=== PATIENT | female | born 1955 | race Caucasian/White ===

== ENCOUNTER 2017-04-14 09:44 | Outpatient (RCR) | payer MEDICAID ==
[2014-11-24 09:38] VITALS: BMI 24.0
[2016-12-17 16:46] VITALS: BP 131/87
[~2017-04-14 09:44] MED LIST: ABILIF5PT PO; ACET-2031 PO; ALTEPLASE RECOMB 2 MG VIAL IVP PRN; ARI2 PO; ARIP10TA4 PO; ARIP5TAB28 PO; BAC10 PO; BACL-1 PO; BACLOFEN PO; CETI-14 PO; CETI-169 PO; CETI-434 PO; CETI10CA8 PO; CHOL10005 PO; CIP500 PO; CIPR-212 PO; CIPR-344 PO; CITA-128 PO; CLAR-1 PO; CLO1 PO; CLON-303 *; CLON-303 PO; CLON-389 PO; CYAN100T31 PO; CYCL10TA29 PO; DEXTROSE 5%(*) 100 ML BAG 100 ML IVPB PRN; DUONEB NEB; EXC PO; FISH OIL1 CAP PO; FLUO-201 PO; FLUO-202 PO; FLUO40CA76 PO; FURO20TA19 PO; HEPARIN FLSH (PORT) 500 UN/5ML IVP PRN; HYDR-385 PO; HYDR-4309 PO; IBU600 PO; IBUP-1618 PO; IBUP200C71 PO; IBUP600T22 PO; IBUP800T37 PO; LAN30PT PO; LEV2I PO; LEVO-3 PO; LEVO-85 PO; LEVO112T44 PO; LEVO200T50 PO; LEVO50TA86 PO; LEVO88TA45 PO; LIDOCAINE/SOD BICARB 8.4% SYR ID PRN; LOR5/325 PO; LURA40TA3 PO; MEMA10TA18 PO; METH-543 PO; METH20TA33 PO; METH5TAB87 PO; METHAMAZOLE PO; METR-1 PO; MIR45PT PO; NITR-105 PO; NS(*) 0.9% 100 ML BAG 100 ML IVPB PRN; NS(*) 0.9% 500 ML BAG 500 ML IV PRN; OMEP40CA48 PO; ONDA4TAB PO; ONDA4TAB97 PO; ONDA8TAB98 PO; OXYC-717 PO; OXYC-865 PO; OXYC-870 PO; OXYC1TAB54 PO; OXYM30SP2 ENA; PAN40 PO; PANT40SU3 PO; PER PO; PHEN200T32 PO; PRE10 PO; PRE20 PO; PRE5 PO; PROM-100 PO; PROM-110 PO; PROM25SU8 PR; QUET100T PO; QUET200T29 PO; QUET25TA PO; QUET300T17 PO; QUET50TA PO; SUCR1TAB85 PO; SULF-198 PO; SULF1TAB24 PO; TIZA-128 PO; TRA50 PO; TRAM-420 PO; TRAZ-133 PO; TRAZ-156 PO; TRAZ-163 PO; TRAZ150T61 PO; TRAZ150T8 PO; VILA40TA PO; VORT10TA PO; VORT20TA PO; WATER STERILE 10 ML VIAL IVP PRN; ZOL5 PO; ZOLP-1 PO; ZOLP-350 PO; ZOLP6.2530 PO; [UNRECOGNIZED DRUG - CODE]
[2017-04-22] MEDS ORDERED: LOPE2CAP88 PO (13:23)
[2017-04-22] MEDS ORDERED: DICY10AM2 PO (13:23)
[2017-04-22] MEDS ORDERED: IBUP800T37 PO (13:23)
[2017-04-22] MEDS ORDERED: DESV50TA9 PO (13:26)
[2017-04-22] MEDS ORDERED: LEVO-317 PO (13:26)
[2017-04-22] MEDS ORDERED: TRAZ-163 PO (13:26)
[2017-04-22] MEDS ORDERED: OMEP-125 PO (13:26)
== END 2017-05-25 10:28 | disposition home or self-care (01) ==
LOC: SPU 09:44
PROVIDERS: ATTEND Physician Assistant
DX: E03.9 Hypothyroidism, unspecified (principal)

== ENCOUNTER → 2017-04-20 | Outpatient (CLI) | payer MEDICAID ==
[2014-11-24 09:38] VITALS: BMI 24.0
[~2017-04-20] MED LIST changes: -ALTEPLASE RECOMB 2 MG VIAL IVP PRN; +DESV50TA9 PO; -DEXTROSE 5%(*) 100 ML BAG 100 ML IVPB PRN; +DICY10AM2 PO; -HEPARIN FLSH (PORT) 500 UN/5ML IVP PRN; +LEVO-317 PO; -LIDOCAINE/SOD BICARB 8.4% SYR ID PRN; +LOPE2CAP88 PO; -NS(*) 0.9% 100 ML BAG 100 ML IVPB PRN; -NS(*) 0.9% 500 ML BAG 500 ML IV PRN; +OMEP-125 PO; -WATER STERILE 10 ML VIAL IVP PRN
--- NOTE | 2017-04-21 08:25 | RADIOLOGY IMAGING REPORT ---
FACILITY: [facility] PATIENT NAME: RENEE MAZARIEGOS : [id number] MR: [id number] V: [id number] EXAM DATE: [id number] ORDERING PHYSICIAN: DELIA RILEY TECHNOLOGIST: Gertrude Malone PROCEDURE:BILATERAL DIAGNOSTIC DIGITAL MAMMOGRAM WITH CAD AND 3D BREAST TOMOSYNTHESIS. COMPARISON:Prior mammograms dated 06/25/13, 06/08/13. INDICATIONS:RIGHT BREAST PAIN. FINDINGS: Dense heterogeneous fibroglandular tissue is seen throughout the breasts. The previously noted round density in the medial portion of the right breast seen on the prior mammogram from 06/08/13 is no longer seen and by history was surgically removed. The parenchymal pattern has otherwise remained stable when allowing for difference in mammographic technique and patient positioning. There is no demonstration of malignant appearing mass, malignant appearing calcification or other secondary sign of malignancy in either breast. DIAGNOSTIC CATEGORY 2--BENIGN FINDING. RECOMMENDATIONS: ROUTINE MAMMOGRAM AND CLINICAL EVALUATION. CLINICAL EVALUATION. IMPRESSION: BI-RADS 2: No mammographic abnormality is seen. Today's right breast ultrasound did reveal prominent ducts in the lateral portion of the right breast which may account for the patient's right breast pain. Clinical followup recommended for her pain. Dictated by: Mare Díaz M.D. on 04/20/2017 at 16:05 Transcribed by: JESSICA on 04/20/2017 at 22:49 Approved by: Mare Díaz M.D. on 04/21/2017 at 8:24 [facility]
--- NOTE | 2017-04-21 08:25 | RADIOLOGY IMAGING REPORT ---
FACILITY: [facility] [place] PATIENT NAME: RENEE MAZARIEGOS : [id number] MR: [id number] V: [id number] EXAM DATE: ORDERING PHYSICIAN: DELIA RILEY TECHNOLOGIST: Sandor De La O PROCEDURE:RIGHT BREAST ULTRASOUND COMPARISON:None. INDICATIONS:RIGHT BREAST PAIN. FINDINGS: There are very prominent ducts in the lateral portion of the right breast which may account for patient's right breast pain. Prominent ducts also noted in the right retroareolar portion. DIAGNOSTIC CATEGORY 2--BENIGN FINDING. RECOMMENDATIONS: ROUTINE MAMMOGRAM AND CLINICAL EVALUATION. CLINICAL EVALUATION. IMPRESSION: BI-RADS 2: Prominent ducts in the lateral portion of the right breast and the right retroareolar region which may account for patient's right breast pain. Clinical followup recommended. Dictated by: Mare Díaz M.D. on 04/20/2017 at 16:29 Transcribed by: JESSICA on 04/20/2017 at 23:13 Approved by: Mare Díaz M.D. on 04/21/2017 at 8:24 [facility]
== END ==
LOC: MAMO 01:41
PROVIDERS: ATTEND Physician Assistant
DX: R92.8 Other abnormal and inconclusive findings on diagnostic imaging of breast (principal)
CPT/HCPCS: 77062; 77066

== ENCOUNTER 2017-04-28 01:39 | Day surgery (SDC) | payer MEDICAID ==
[2014-11-24 09:38] VITALS: Ht 175.3 cm; Wt 85.7 kg
[2017-04-28] VITALS (9 sets, daily range): BP systolic 68–122; BP diastolic 39–81
[~2017-04-28] VITALS: Ht 175.3 cm; Wt 85.7 kg
[2017-04-28] MEDS ORDERED: PROPOFOL EMUL(*) 10MG/ML 20 ML 40 ML ONE (07:07)
--- NOTE | 2017-04-28 07:25 | Post Operative Progress Note ---
Post Operative Progress Note Date: Apr 28, 2017 Time: 09:29 Surgeon: kvng Anesthesia: dr whalen Pre-Op Diagnosis: diarrhea Post-Op Diagnosis: sigmoid diverticulosis, 2 mm polyp at 70 cm and 4 mm polyp at 35 cm Procedure(s): colonoscopy with polypectomy and random biopsies NORBERT HOBBS MD Apr 28, 2017 07:25
--- NOTE | 2017-04-28 07:26 | Short(Outpt) Discharge Summary ---
Discharge Summary Reason for Hosp/Final Diag: (1) Diarrhea Hospital Course & Plan: sigmoid diverticulosis, 2 mm polyp at 70 cm and 4 mm polyp at 35 cm Departure Discharge to: Home Discharge Instructions Home Meds Reported Medications Desvenlafaxine Succinate (PRISTIQ ER) 50 Mg Tab.er.24h, 50 MG PO QHS 04/22/17 Levothyroxine Sodium (LEVOXYL) 125 Mcg Tablet, 125 MCG PO QDAY, TAB 04/22/17 Trazodone Hcl (TRAZODONE HCL) 100 Mg Tablet, 100 MG PO QHS, TAB 04/22/17 Omeprazole (OMEPRAZOLE) 20 Mg Capsule.dr, 1 CAP PO QDAY, CAP 04/22/17 Ibuprofen (IBUPROFEN) 800 Mg Tablet, 1 TAB PO Q8H, TAB 04/22/17 Loperamide Hcl (LOPERAMIDE) 2 Mg Capsule, 4 MG PO QAM, CAPSULE 04/22/17 Dicyclomine Hcl (BENTYL) 10 Mg/1 Ml Ampul, 10 MG PO QAM 04/22/17 Clonazepam (CLONAZEPAM) 1 Mg Tab.rapdis, 2 MG PO QHS, #12 TAB 11/02/16 Aripiprazole (ABILIFY) 5 Mg Tablet, 10 MG PO QDAY, #10 TAB 11/02/16 Cholecalciferol (Vitamin D3) (VITAMIN D3) 1,000 Unit Tablet, 2000 UNIT PO, TAB 12/12/15 Quetiapine Fumarate (QUETIAPINE FUMARATE) 50 Mg Tablet, 50 MG PO QHS 10/06/15 Discontinued Reported Medications Levothyroxine Sodium (LEVOTHYROXINE SODIUM) 100 Mcg Tablet, 100 MCG PO QDAY, TAB 11/02/16 Trazodone Hcl (TRAZODONE HCL) 50 Mg Tablet, 50 MG PO QHS 11/06/15 Lansoprazole (PREVACID) 30 Mg Capsule.dr, 30 MG PO QDAY, CAP 09/12/15 Discontinued Scripts Ibuprofen (IBUPROFEN) 600 Mg Tablet, 1 TAB PO Q6H for PAIN, #60 TAB Prov:ANGEL KEMP DO 01/08/16 Diet: High Fiber Activity: As Tolerated NORBERT HOBBS MD Apr 28, 2017 07:26
[2017-04-28] MEDS ORDERED: MIDAZOLAM 2 MG/2 ML VIAL IVP ONE (08:30)
[2017-04-28] MEDS ORDERED: LIDOCAINE/SOD BICARB 8.4% SYR ID ONE (08:30)
[2017-04-28] MEDS ORDERED: NORMOSOL R SOLN(*) 1000 ML BAG 1,000 ML IV PRN (08:30)
[2017-04-28] MEDS ORDERED: PROPOFOL EMUL(*) 10MG/ML 20 ML 20 ML ONE (09:15)
--- NOTE | 2017-04-28 16:15 | OPERATIVE REPORT 1 ---
EVENT DATE: April 28, 2017 SURGEON: Travis Santillan MD ANESTHESIOLOGIST: Brendan Brown MD ANESTHESIA: Sedation. PREOPERATIVE DIAGNOSIS Diarrhea. POSTOPERATIVE DIAGNOSES 1. Sigmoid diverticulosis. 2. A 2 mm polyp at 70 cm. 3. A 4 mm polyp at 35 cm. PROCEDURE PERFORMED Colonoscopy with random biopsies and polypectomies. DESCRIPTION OF PROCEDURE The patient was placed in the left lateral decubitus position and given intravenous sedation. The rectal exam was unremarkable. A flexible colonoscope was inserted and advanced to the cecum. She had an excellent bowel prep. Ileocecal valve, base of the cecum, and appendiceal orifice were identified. The scope was slowly withdrawn. Care was taken to look behind the haustral folds. No abnormalities were noted in the right colon. Random biopsies were taken. The transverse colon appeared to be normal. Biopsies were taken. The left colon appeared to be normal. Biopsies were taken. She did have some sigmoid diverticula. No evidence of diverticulitis. At 70 cm, she had a 2 mm polypoid projection. This was removed with a cold cup. At 35 cm , she had a 4 mm polyp which was removed with polypectomy snare cautery and retrieved. The rectum was normal. The scope was retroflexed, and that appeared to be normal. Random biopsies were obtained of the rectum as well. The patient will require a repeat colonoscopy in five years if those polyps are adenomatous. RAUL
== END 2017-04-28 11:02 | disposition home or self-care (01) ==
LOC: OR 01:39
PROVIDERS: ATTEND Surgery
DX: D12.4 Benign neoplasm of descending colon (principal); K63.5 Polyp of colon; K57.30 Diverticulosis of large intestine without perforation or abscess without bleeding
CPT/HCPCS: 00812; 45380; 45385; 88305; J2704

== ENCOUNTER 2017-07-07 08:06 | Outpatient (RCR) | payer MEDICAID ==
[2014-11-24 09:38] VITALS: BMI 24.0
[2017-07-07] MEDS ORDERED: DEXTROSE 5%(*) 100 ML BAG 100 ML IVPB PRN (12:25)
[2017-07-07] MEDS ORDERED: NS(*) 0.9% 500 ML BAG 500 ML IV PRN (12:25)
[2017-07-07] MEDS ORDERED: NS(*) 0.9% 100 ML BAG 100 ML IVPB PRN (12:25)
[2017-07-07] MEDS ORDERED: LIDOCAINE/SOD BICARB 8.4% SYR ID PRN (12:25)
[2017-07-07] MEDS ORDERED: HEPARIN FLSH (PORT) 500 UN/5ML IVP PRN (12:25)
[2017-07-07] MEDS ORDERED: WATER FOR INJ,STERILE 20 ML IVP PRN (12:25)
[2017-07-07] MEDS ORDERED: ALTEPLASE RECOMB 2 MG VIAL IVP PRN (12:25)
[2017-07-07 13:31] VITALS: BP 107/77
== END 2017-07-29 10:57 | disposition home or self-care (01) ==
LOC: SPU 08:06
PROVIDERS: ATTEND Physician Assistant
DX: E03.9 Hypothyroidism, unspecified (principal)
CPT/HCPCS: 84443; 96523; J1642

== ENCOUNTER → 2017-08-23 | Outpatient (CLI) | payer MEDICAID ==
[2014-11-24 09:38] VITALS: BMI 24.0
--- NOTE | 2017-08-23 15:08 | RADIOLOGY IMAGING REPORT ---
FACILITY: [facility] [place] PATIENT NAME: Gayatri Ahuja : 1955 MR: [id number] V: [id number] EXAM DATE: ORDERING PHYSICIAN: DELIA RILEY TECHNOLOGIST: Location: [facility] Patient: Gayatri Ahuja : 1955 Visit/Account:[id number] Date of Sevice: 08/23/2017 DEXA Scan 08/23/2017 2:30 PM HISTORY: Postmenopausal. Low back pain. Family history of osteoporosis. Comparison: DEXA scan from 06/08/2013. LUMBAR SPINE: The bone mineral density (BMD) measured from L1-L4 correlates with a Z-score of 0.5 and a T-score of -0.4 which is Normal as defined by the World Health Organization. The corresponding risk of fracture in the lumbar spine is not significantly increased compared with a young adult reference population. This value has decreased by 6.2 % since the prior study. More than 5% change is considered signifi cant. HIP: Bone mineral density (BMD) measured in the Left total hip region correlates with a Z-score -1.0 and a T-score of -1.6 which is moderately osteopenic as defined by the World Health Organization. The cor responding risk of fracture in the hip is increased 3-4 times compared with a young adult reference p opulation. This value has decreased by 7.4 % since the prior study. More than 5% change is considere d significant. Bone mineral density (BMD) measured in the Femoral Neck region measures 0.808 g/cm2. T-score is -1. 7. IMPRESSION: 1. Lumbar spine: Normal. There has been a significant interval decrease in the bone mineral density since the previous exam. 2. Left Total Hip: Moderate osteopenia. There has been a significant interval decrease in the bone mineral density since the previous exam. 3. Femoral Neck: Bone Mineral Density is 0.808 g/cm2. Moderate osteopenia. The next DEXA scan of this patient should include the following sites: L1-L4 and the left hip. FRAX? WHO Fracture Risk Assessment Tool link: <http://www.shef.ac.uk/FRAX/tool.jsp?locationValue=9> PLEASE NOTE: 1) The World Health Organization defines low BMD as follows: T-score Normal > -1 Osteopenia < -1 and > -2.5 Osteoporosis < -2.5 without fractures Established osteoporosis < -2.5 with fractures 2) In general, you may wish to consider: Diagnosis Treatment Follow-up DEXA Normal BMD Prevention 2-3 years Osteopenia Prevention/therapy 1-2 years Osteoporosis Therapy Yearly 3) Fracture risk estimated from the T-score is more accurate for vertebral fractures (often spontane ous) than for hip fractures. Report Dictated By: Eliseo Dorantes MD at 08/23/2017 3:04 PM Report E-Signed By: Eliseo Dorantes MD at 08/23/2017 3:06 PM RAJESHN:SAVANA
== END ==
LOC: RAD 08-11 02:34
PROVIDERS: ATTEND Physician Assistant
DX: Z13.820 Encounter for screening for osteoporosis (principal); M85.88 Other specified disorders of bone density and structure, other site
CPT/HCPCS: 77080

== ENCOUNTER 2017-08-27 17:23 | Emergency (ER) | payer MEDICAID ==
[2014-11-24 09:38] VITALS: BMI 24.0
[~2017-08-27 17:23] MED LIST changes: -KET10 PO
--- NOTE | 2017-08-27 17:38 | ER Report ---
History and Physical Time Seen By MD: 17:38 Hx. of Stated Complaint: PT PRESENTS WITH ROUNDABOUT STORY OF TRIPPIN AND FALLING DOWN WOODEN STEPS, WITH QUESTIONABLE LOC, CAME BACK IN HER HOUSE AND TOOK A 2 HOUR NAP. SHE WOKE UP AND CALLED AMBULANCE C COLLAR IN PLACE HPI/ROS CHIEF COMPLAINT: Fall HISTORY OF PRESENT ILLNESS: 61-year-old female patient presents to emergency room with complaint of a fall. Patient states that she was on the porch and is unsure what happened, she ended up falling down 5 steps. She states she landed on her foot at the bottom. She states that since then she's been having a headache, neck pain, back pain, left lower leg pain. Patient states she's also noticed that she is dizzy as well as confused. She states that she has been nauseated but denies having any vomiting. She states she has not taken any medication for this. She did contact EMS after waking up for nap and being unable to recall the past 2 hours. REVIEW OF SYSTEMS: Respiratory: No cough, no dyspnea. Cardiovascular: No chest pain, no palpitations. Gastrointestinal: No vomiting, no abdominal pain. Musculoskeletal: As noted above Allergies: Coded Allergies: Penicillins (Verified Allergy, Severe, 08/27/17) codeine (Verified Allergy, Mild, N/V, 08/27/17) erythromycin base (Verified Allergy, Mild, 08/27/17) propoxyphene (Verified Allergy, Mild, NAUSEA, 08/27/17) tetracycline (Verified Allergy, Mild, DIARRHEA, 08/27/17) Home Meds Reported Medications Desvenlafaxine Succinate (PRISTIQ ER) 50 Mg Tab.er.24h, 50 MG PO QHS 04/22/17 Levothyroxine Sodium (LEVOXYL) 125 Mcg Tablet, 125 MCG PO QDAY, TAB 04/22/17 Trazodone Hcl (TRAZODONE HCL) 100 Mg Tablet, 100 MG PO QHS, TAB 04/22/17 Omeprazole (OMEPRAZOLE) 20 Mg Capsule.dr, 1 CAP PO QDAY, CAP 04/22/17 Ibuprofen (IBUPROFEN) 800 Mg Tablet, 1 TAB PO Q8H, TAB 04/22/17 Loperamide Hcl (LOPERAMIDE) 2 Mg Capsule, 4 MG PO QAM, CAPSULE 04/22/17 Dicyclomine Hcl (BENTYL) 10 Mg/1 Ml Ampul, 10 MG PO QAM 04/22/17 Clonazepam (CLONAZEPAM) 1 Mg Tab.rapdis, 2 MG PO QHS, #12 TAB 11/02/16 Aripiprazole (ABILIFY) 5 Mg Tablet, 10 MG PO QDAY, #10 TAB 11/02/16 Cholecalciferol (Vitamin D3) (VITAMIN D3) 1,000 Unit Tablet, 2000 UNIT PO, TAB 12/12/15 Quetiapine Fumarate (QUETIAPINE FUMARATE) 50 Mg Tablet, 50 MG PO QHS 10/06/15 Past Medical/Surgical History Patient has a past medical history of stress headaches, seizures, migraines, irregular heartbeat, DVT, hypertension, asthma, pneumonia, pulmonary embolism, reflux, pancreatitis, UTI, back and neck pain, bilateral arm fractures, ruptured disc in neck, elbow fracture 3, hypothyroidism, PTSD, anxiety, depression. Patient has a surgical history of tonsillectomy, surgery for TMJ, bilateral knee surgery, bunionectomy, hysterectomy, cholecystectomy, thyroidectomy. Patient has a family medical history of cancer, stroke, diabetes, psychiatric problems. Reviewed Nurses Notes: Yes Hx Smoking: No Smoking Status: Former Smoker Exposure to Second Hand Smoke?: No Hx Substance Use Disorder: No Hx Alcohol Use: No Constitutional Vital Sign - Last 24 Hours 08/27/17 08/27/17 08/27/17 08/27/17 17:24 17:24 17:30 17:35 Temp 97.8 Pulse 66 69 Resp 20 B/P (MAP) 122/85 (97) 122/85 137/90 (106) Pulse Ox 95 95 O2 Delivery Room Air 08/27/17 08/27/17 08/27/17 08/27/17 18:00 18:05 18:20 18:30 Pulse 68 66 B/P (MAP) 128/69 (88) 118/63 (81) Pulse Ox 93 93 08/27/17 18:50 Pulse 66 Pulse Ox 78 Physical Exam General Appearance: The patient is alert, has no immediate need for airway protection and no current signs of toxicity. Respiratory: Chest is non tender, lungs are clear to auscultation. Cardiac: regular rate and rhythm Gastrointestinal: Abdomen is soft and non tender, no masses, bowel sounds normal. Musculoskeletal: Neck: Neck is tender to palpation, unable to evaluate further as patient has c-collar. Extremities have full range of motion and are non tender. Patient has tenderness to the left lower leg, no bruising. Skin: No rashes or lesions. Neuro: Patient is alert and oriented 2, cranial nerves II through XII grossly intact. Patient unable to complete serial sevens. Patient was unable to name the president or give the date, however she did not month. DIFFERENTIAL DIAGNOSIS: After history and physical exam differential diagnosis was considered for concussion, cervical strain, fracture, intracranial hemorrhage. Medical Decision Making Data Points Result Diagram: 08/27/17184908/27/171849 Laboratory Hematology Test 08/27/17 18:50 Red Blood Count 4.56 M/uL (4.17-5.56) Mean Corpuscular Volume 81.5 fL (80.0-96.0) Mean Corpuscular Hemoglobin 27.9 pg (26.0-33.0) Mean Corpuscular Hemoglobin Concent 34.3 g/dL (32.0-36.0) Red Cell Distribution Width 14.5 % (11.5-14.5) Mean Platelet Volume 9.4 fL (7.2-11.1) Neutrophils (%) (Auto) 63.2 % (39.4-72.5) Lymphocytes (%) (Auto) 29.3 % (17.6-49.6) Monocytes (%) (Auto) 5.3 % (4.1-12.4) Eosinophils (%) (Auto) 1.6 % (0.4-6.7) Basophils (%) (Auto) 0.6 % (0.3-1.4) Nucleated RBC Relative Count (auto) 0.0 /100WBC Neutrophils # (Auto) 5.6 K/uL (2.0-7.4) Lymphocytes # (Auto) 2.6 K/uL (1.3-3.6) Monocytes # (Auto) 0.5 K/uL (0.3-1.0) Eosinophils # (Auto) 0.1 K/uL (0.0-0.5) Basophils # (Auto) 0.0 K/uL (0.0-0.1) Nucleated RBC Absolute Count (auto) 0.00 K/uL Sodium Level 143 mmol/L (137-145) Potassium Level 3.3 mmol/L (3.5-5.0) Chloride Level 110 mmol/L (98-107) Carbon Dioxide Level 16 mmol/L (22-31) Blood Urea Nitrogen 21 mg/dl (7-18) Creatinine 1.60 mg/dl (0.52-1.04) Glomerular Filtration Rate Calc 32.7 Random Glucose 98 mg/dl (75-110) Calcium Level 9.6 mg/dl (8.4-10.2) Total Bilirubin 0.3 mg/dl (0.2-1.3) Aspartate Amino Transf (AST/SGOT) 19 U/L (0-35) Alanine Aminotransferase (ALT/SGPT) 17 U/L (0-56) Alkaline Phosphatase 95 U/L (0-126) Troponin I < 0.012 ng/ml Total Protein 7.9 gm/dl (6.3-8.2) Albumin 4.1 g/dl (3.5-5.0) Chemistry Test 08/27/17 18:50 White Blood Count 8.8 k/uL (4.5-11.0) Red Blood Count 4.56 M/uL (4.17-5.56) Hemoglobin 12.7 g/dL (12.0-16.0) Hematocrit 37.2 % (34.0-47.0) Mean Corpuscular Volume 81.5 fL (80.0-96.0) Mean Corpuscular Hemoglobin 27.9 pg (26.0-33.0) Mean Corpuscular Hemoglobin Concent 34.3 g/dL (32.0-36.0) Red Cell Distribution Width 14.5 % (11.5-14.5) Platelet Count 207 K/uL (150-450) Mean Platelet Volume 9.4 fL (7.2-11.1) Neutrophils (%) (Auto) 63.2 % (39.4-72.5) Lymphocytes (%) (Auto) 29.3 % (17.6-49.6) Monocytes (%) (Auto) 5.3 % (4.1-12.4) Eosinophils (%) (Auto) 1.6 % (0.4-6.7) Basophils (%) (Auto) 0.6 % (0.3-1.4) Nucleated RBC Relative Count (auto) 0.0 /100WBC Neutrophils # (Auto) 5.6 K/uL (2.0-7.4) Lymphocytes # (Auto) 2.6 K/uL (1.3-3.6) Monocytes # (Auto) 0.5 K/uL (0.3-1.0) Eosinophils # (Auto) 0.1 K/uL (0.0-0.5) Basophils # (Auto) 0.0 K/uL (0.0-0.1) Nucleated RBC Absolute Count (auto) 0.00 K/uL Glomerular Filtration Rate Calc 32.7 Calcium Level 9.6 mg/dl (8.4-10.2) Total Bilirubin 0.3 mg/dl (0.2-1.3) Aspartate Amino Transf (AST/SGOT) 19 U/L (0-35) Alanine Aminotransferase (ALT/SGPT) 17 U/L (0-56) Alkaline Phosphatase 95 U/L (0-126) Troponin I < 0.012 ng/ml Total Protein 7.9 gm/dl (6.3-8.2) Albumin 4.1 g/dl (3.5-5.0) EKG/Imaging EKG Interpretation 12 lead EKG: Rhythm: normal sinus rhythm with ventricular rate of 60 bpm [place]: normal QRS: normal ST segments: normal Imaging C-SPINE W/O CONTRAST HISTORY: Fall with confusion and dizziness. COMPARISON: 08/19/2016. MR cervical spine 01/10/2014. CT brain was performed concurrently. TECHNIQUE: Axial images were obtained from the skull base through the upper thoracic spine. Coronal and sagittal reformatted images were obtained from the axial source data. One of the following dose optimization techniques was utilized in the performance of this exam: Automated exposure control; adjustment of the mA and/ or kV according to the patient's size; or use of an iterative reconstruction technique. Specific details can be referenced in the facility's radiology CT exam operational policy. CONTRAST: None. FINDINGS: Musculoskeletal/vertebra: No acute osseous abnormality. Vertebral body heights are maintained and alignment is unremarkable. There is moderate to severe degenerative disease at C5-6 with anterior and posterior osteophytes. Spinal canal is normal in caliber, although there is mild narrowing at C5-6 secondary to degenerative changes. Prevertebral soft tissues are within normal limits. There is severe degenerative facet disease of lower cervical and upper thoracic spine. There is severe degenerative change of the right temporomandibular joint with [id number] and subchondral cyst formation, as well as expansion of the right mandibular head. Visualized upper chest: Normal. Soft tissues: There is a right port that is partially visualized. IMPRESSION: 1. Degenerative changes, but no acute osseous abnormality of the cervical spine. 2. 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 Report Dictated By: Pilar Kimball at 08/27/2017 8:12 PM Report E-Signed By: Pilar Kimball at 08/27/2017 8:17 PM HEAD W/O CONTRAST HISTORY: Fall with confusion and dizziness. COMPARISON: 08/19/2016 and studies dating to 06/08/2011. CT cervical spine was performed concurrently. TECHNIQUE: Axial images were obtained from the skull base to the vertex without contrast. Sagittal and coronal reformats were performed. One of the following dose optimization techniques was utilized in the performance of this exam: Automated exposure control; adjustment of the mA and/ or kV according to the patient's size; or use of an iterative reconstruction technique. Specific details can be referenced in the facility's radiology CT exam operational policy. CONTRAST: None. FINDINGS: Brain: No intracranial hemorrhage, mass or edema. There is periventricular and subcortical white matter low attenuation that is nonspecific, but most likely reflects chronic microvascular ischemic change, mild in severity. There is mild calcification of the internal carotid arteries. Ventricles and sulci: Sulci are normal. Ventricular size and configuration is normal. Osseous structures: Intact. There is hyperostosis frontalis interna. There is severe degenerative change of the right temporomandibular joint with bone-on- bone and subchondral cyst formation. Paranasal sinuses and mastoids: Sinuses and right mastoid are clear. There is opacification of inferior left mastoid air cells, likely a benign effusion. Nasal septum bows toward the right. There is a rightward nasal septal spur that narrows the right nasal passage. Orbits and soft tissues: There is minimal cerumen within the right external auditory canal. IMPRESSION: 1. No acute intracranial abnormality. Report Dictated By: Pilar Kimball at 08/27/2017 8:17 PM Report E-Signed By: Pilar Kimball at 08/27/2017 8:22 PM LUMBAR SPINE 4 VIEWS HISTORY: Fall. Pain. COMPARISON: 07/01/2016 and studies dating to 04/12/2013. TECHNIQUE: AP, right and left oblique, and lateral views of the lumbar spine. FINDINGS: There are 5 nonrib-bearing lumbar-type vertebral bodies. Vertebral body heights are maintained. There is degenerative disc disease that is greatest at the thoracolumbar junction and is unchanged. There is a 2 mm anterolisthesis of L3 on L4, unchanged. The sacroiliac joints are patent without widening. There is a left pelvic phlebolith. There is an IVC filter, unchanged. IMPRESSION: 1. Stable degenerative changes, but no acute osseous abnormality of the lumbar spine. Report Dictated By: Pilar Kimball at 08/27/2017 7:58 PM Report E-Signed By: Pilar Kimball at 08/27/2017 8:00 PM THORACIC SPINE 3 VIEWS HISTORY: Fall with pain. COMPARISON: 06/08/2011. TECHNIQUE: AP, lateral, and swimmer's views of the thoracic spine. FINDINGS: There is diffuse bony demineralization. There is wedging of T8, and there is minimal wedging of the 4 vertebral bodies below it, all unchanged from chest x-ray of 07/01/2014. There is mild to moderate degenerative change of the spine. There is no listhesis. There is a slight rightward curvature of the upper thoracic spine, unchanged. There are surgical clips in the right upper quadrant from cholecystectomy. There is a partially visualized IVC filter. There is a right port, and the tip terminates in the mid superior vena cava. IMPRESSION: 1. Stable degenerative changes and wedging of mid to lower thoracic vertebral bodies, but no acute osseous abnormality of the thoracic spine. Report Dictated By: Pilar Kimball at 08/27/2017 8:01 PM Report E-Signed By: Pilar Kimball at 08/27/2017 8:04 PM TIBIA FIBULA LEFT HISTORY: Fall with pain. COMPARISON: 09/19/2010. TECHNIQUE: AP and lateral views of the left tibia and fibula. FINDINGS: There is no fracture or dislocation. There is mild degenerative change of the tibiotalar joint. IMPRESSION: 1. No acute osseous abnormality of the left tibia and fibula. Report Dictated By: Pilar Kimball at 08/27/2017 8:05 PM Report E-Signed By: Pilar Kimball at 08/27/2017 8:07 PM ED Course/Re-evaluation ED Course Patient is admitted to exam room, history and physical were obtained. Differential diagnoses were considered. On examination patient has tenderness to the C-spine, which is collared, thoracic and lumbar spine. Patient also had tenderness to the left lower leg. Due to fall, and difficulty with memory a CT scan of the head was done. CT scan of the cervical spine was done. X-ray of the lumbar, thoracic and left lower leg. A CBC, CMP, EKG, troponin were done. EKG showed a normal sinus rhythm, troponin was negative, CBC was unremarkable. Patient did have an elevated creatinine, she's had this past late is likely related to dehydration. X-rays and CT scans were negative. I discussed the findings with patient. I did remove the c-collar at 2024. Patient will be discharged home. We will give her a dose of Toradol here in the emergency room. She is to return to the emergency room if condition worsens. Patient verbalized understanding and agreement with plan. Decision to Disposition Date: August 27, 2017 Decision to Disposition Time: 20:27 Depart Departure Latest Vital Signs Vital Signs Date Time Temp Pulse Resp B/P (MAP) Pulse Ox O2 Delivery O2 Flow Rate FiO2 08/27/17 18:50 66 78 08/27/17 18:30 118/63 (81) 08/27/17 17:24 97.8 20 Room Air Impression: Primary Impression: Contusion of left lower leg Additional Impressions: Back contusion Laceration of left thumb Condition: Improved Disposition: HOME OR SELF-CARE Referrals: DELIA DANIELLE PA-C (PCP) New Scripts Ketorolac Tromethamine (KETOROLAC TROMETHAMINE) 10 Mg Tab 10 MG PO Q6H, #10 TAB Prov: LINDA GARCIA MARY 08/27/17 Patient Instructions: Contusion in Adults (ED) Additional Instructions: Limit activity by pain. Alternate ice and heat to the sore areas. Follow up with Whit Danielle in the early part of next week. Return to the ER if condition worsens. You may take Tylenol as needed for pain. Continue with your current medications. Increase fluid intake. Problem Qualifiers Primary Impression: Contusion of left lower leg Encounter type: initial encounter Qualified Codes: S80.12XA - Contusion of left lower leg, initial encounter Additional Impressions: Back contusion Encounter type: initial encounter Laterality: unspecified laterality Qualified Codes: S20.229A - Contusion of unspecified back wall of thorax, initial encounter Laceration of left thumb Encounter type: initial encounter Damage to nail status: without damage Foreign body presence: without foreign body Qualified Codes: S61.012A - Laceration without foreign body of left thumb without damage to nail, initial encounter LINDA GARCIA August 27, 2017 17:38
--- NOTE | 2017-08-27 18:12 | EKG ---
FACILITY: [facility] - [place] PATIENT NAME: RENEE MAZARIEGOS : [id number] MR: [id number] V: [id number] EXAM DATE: ORDERING PHYSICIAN: LINDA GARCIA TECHNOLOGIST: Test Reason : Blood Pressure : / mmHG Vent. Rate : 068 BPM Atrial Rate : 068 BPM P-R Int : 160 ms QRS Dur : 084 ms QT Int : 432 ms P-R-T Axes : 019 019 047 degrees QTc Int : 459 ms Normal sinus rhythm Normal ECG Confirmed by JANN PAGE ([id number]) on 08/27/2017 9:06:22 PM Referred By: Confirmed By:JANN PAGE
[2017-08-27 19:03] LABS: PLATELET COUNT, AUTOMATED 207 K/uL (150-450)
--- NOTE | 2017-08-27 20:06 | RADIOLOGY IMAGING REPORT ---
FAC[place] [facility] [place]IENT NAME: Gayatri Ahuja : 1955 MR: [id number] V: [id number] EXAM DATE: ORDERING PHYSICIAN: LINDA GARCIA TECHNOLOGIST: Location: [facility] Patient: Gayatri Ahuja : 1955 Visit/Account:[id number] Date of Sevice: 08/27/2017 LUMBAR SPINE 4 VIEWS HISTORY: Fall. Pain. COMPARISON: 07/01/2016 and studies dating to 04/12/2013. TECHNIQUE: AP, right and left oblique, and lateral views of the lumbar spine. FINDINGS: There are 5 nonrib-bearing lumbar-type vertebral bodies. Vertebral body heights are maintai carmen. There is degenerative disc disease that is greatest at the thoracolumbar junction and is unchang ed. There is a 2 mm anterolisthesis of L3 on L4, unchanged. The sacroiliac joints are patent without widening. There is a left pelvic phlebolith. There is an IVC filter, unchanged. IMPRESSION: 1. Stable degenerative changes, but no acute osseous abnormality of the lumbar spine. Report Dictated By: Pilar Kimball at 08/27/2017 7:58 PM Report E-Signed By: Pialr Kimball at 08/27/2017 8:00 PM WSN:[id number]
--- NOTE | 2017-08-27 20:09 | RADIOLOGY IMAGING REPORT ---
FACILITY: [facility] PATIENT NAME: Gayatri Ahuja : 1955 MR: [id number] V: [id number] EXAM DATE: ORDERING PHYSICIAN: LINDA GARCIA TECHNOLOGIST: Location: [facility] [place] Patient: Gayatri Ahuja : 1955 Visit/Account:[id number] Date of Sevice: 08/27/2017 THORACIC SPINE 3 VIEWS HISTORY: Fall with pain. COMPARISON: 06/08/2011. TECHNIQUE: AP, lateral, and swimmer's views of the thoracic spine. FINDINGS: There is diffuse bony demineralization. There is wedging of T8, and there is minimal wedgin g of the 4 vertebral bodies below it, all unchanged from chest x-ray of 07/01/2014. There is mild to m oderate degenerative change of the spine. There is no listhesis. There is a slight rightward curvatur e of the upper thoracic spine, unchanged. There are surgical clips in the right upper quadrant from cholecystectomy. There is a partially visua lized IVC filter. There is a right port, and the tip terminates in the mid superior vena cava. IMPRESSION: 1. Stable degenerative changes and wedging of mid to lower thoracic vertebral bodies, but no acute os seous abnormality of the thoracic spine. Report Dictated By: Pilar Kimball at 08/27/2017 8:01 PM Report E-Signed By: Pilar Kimball at 08/27/2017 8:04 PM WSN:[id number]
--- NOTE | 2017-08-27 20:10 | RADIOLOGY IMAGING REPORT ---
FACILITY: [facility] - [place] PATIENT NAME: Gayatri Ahuja : 1955 MR: [id number] V: [id number] EXAM DATE: ORDERING PHYSICIAN: LIDNA GARCIA TECHNOLOGIST: Location: [facility] Patient: Gayatri Ahuja : 1955 Visit/Account:[id number] Date of Sevice: 08/27/2017 TIBIA FIBULA LEFT HISTORY: Fall with pain. COMPARISON: 09/19/2010. TECHNIQUE: AP and lateral views of the left tibia and fibula. FINDINGS: There is no fracture or dislocation. There is mild degenerative change of the tibiotalar therese int. IMPRESSION: 1. No acute osseous abnormality of the left tibia and fibula. Report Dictated By: Pilar Kimball at 08/27/2017 8:05 PM Report E-Signed By: Pilar Kimball at 08/27/2017 8:07 PM WSN:[id number]
--- NOTE | 2017-08-27 20:21 | RADIOLOGY IMAGING REPORT ---
FACILITY: [facility] PATIENT NAME: Gayatri Ahuja : 1955 MR: [id number] V: [id number] EXAM DATE: ORDERING PHYSICIAN: LINDA GARCIA TECHNOLOGIST: [facility] Patient: Gayatri Ahuja : 1955 Visit/Account:[id number] Date of Sevice: 08/27/2017 C-SPINE W/O CONTRAST HISTORY: Fall with confusion and dizziness. COMPARISON: 08/19/2016. MR cervical spine 01/10/2014. CT brain was performed concurrently. TECHNIQUE: Axial images were obtained from the skull base through the upper thoracic spine. Coronal a nd sagittal reformatted images were obtained from the axial source data. One of the following dose optimization techniques was utilized in the performance of this exam: Autom ated exposure control; adjustment of the mA and/or kV according to the patient's size; or use of an i terative reconstruction technique. Specific details can be referenced in the facility's radiology CT exam operational policy. CONTRAST: None. FINDINGS: Musculoskeletal/vertebra: No acute osseous abnormality. Vertebral body heights are maintained and ali gnment is unremarkable. There is moderate to severe degenerative disease at C5-6 with anterior and po sterior osteophytes. Spinal canal is normal in caliber, although there is mild narrowing at C5-6 seco ndary to degenerative changes. Prevertebral soft tissues are within normal limits. There is severe de generative facet disease of lower cervical and upper thoracic spine. There is severe degenerative change of the right temporomandibular joint with [id number] and subcho ndral cyst formation, as well as expansion of the right mandibular head. Visualized upper chest: Normal. Soft tissues: There is a right port that is partially visualized. IMPRESSION: 1. Degenerative changes, but no acute osseous abnormality of the cervical spine. 2. 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 Report Dictated By: Pilar Kimball at 08/27/2017 8:12 PM Report E-Signed By: Pilar Kimball at 08/27/2017 8:17 PM WSN:[id number]
--- NOTE | 2017-08-27 20:27 | RADIOLOGY IMAGING REPORT ---
FACILITY: [facility] - [place] PATIENT NAME: Gayatri Ahuja : 1955 MR: [id number] V: [id number] EXAM DATE: ORDERING PHYSICIAN: LINDA GARCIA TECHNOLOGIST: Location: [facility] [place] Patient: Gayatri Ahuja : 1955 Visit/Account:[id number] Date of Sevice: 08/27/2017 HEAD W/O CONTRAST HISTORY: Fall with confusion and dizziness. COMPARISON: 08/19/2016 and studies dating to 06/08/2011. CT cervical spine was performed concurrently. TECHNIQUE: Axial images were obtained from the skull base to the vertex without contrast. Sagittal an d coronal reformats were performed. One of the following dose optimization techniques was utilized in the performance of this exam: Autom ated exposure control; adjustment of the mA and/or kV according to the patient's size; or use of an i terative reconstruction technique. Specific details can be referenced in the facility's radiology CT exam operational policy. CONTRAST: None. FINDINGS: Brain: No intracranial hemorrhage, mass or edema. There is periventricular and subcortical white rahul er low attenuation that is nonspecific, but most likely reflects chronic microvascular ischemic rodríguez e, mild in severity. There is mild calcification of the internal carotid arteries. Ventricles and sulci: Sulci are normal. Ventricular size and configuration is normal. Osseous structures: Intact. There is hyperostosis frontalis interna. There is severe degenerative vonnie nge of the right temporomandibular joint with cukr-jo-ovuh and subchondral cyst formation. Paranasal sinuses and mastoids: Sinuses and right mastoid are clear. There is opacification of inferi or left mastoid air cells, likely a benign effusion. Nasal septum bows toward the right. There is a r ightward nasal septal spur that narrows the right nasal passage. Orbits and soft tissues: There is minimal cerumen within the right external auditory canal. IMPRESSION: 1. No acute intracranial abnormality. Report Dictated By: Pilar Kimball at 08/27/2017 8:17 PM Report E-Signed By: Pilar Kimball at 08/27/2017 8:22 PM WSN:[id number]
[2017-08-27] MEDS ORDERED: KETOROLAC TROM 10 MG TAB TH PO ONE (20:30)
[2017-08-27] MEDS ORDERED: KETOROLAC TROM 10MG TAB PO ONE (20:30)
[2017-08-27 20:37] VITALS: BP 110/93
[2017-08-27] MEDS ORDERED: KET10 PO (20:47)
== END 2017-08-27 20:45 | disposition home or self-care (01) ==
LOC: ER 17:26
DX: S80.12XA Contusion of left lower leg, initial encounter (principal); S20.229A Contusion of unspecified back wall of thorax, initial encounter; S61.012A Laceration without foreign body of left thumb without damage to nail, initial encounter; W10.9XXA Fall (on) (from) unspecified stairs and steps, initial encounter
CPT/HCPCS: 36415; 70450; 72072; 72120; 72125; 82040; 82247; 82310; 82374; 82435; 82565; 82947; 84075; 84132; 84155; 84295; 84450; 84460; 84484; 84520; 85025; 93005; 99283

== ENCOUNTER → 2017-08-27 | Outpatient (CLI) | payer MEDICAID ==
[2014-11-24 09:38] VITALS: BMI 24.0
[~2017-08-27] MED LIST changes: +KET10 PO
== END ==
LOC: AMB 16:55
PROVIDERS: ATTEND Nurse Practitioner
DX: M54.2 Cervicalgia (principal); R42 Dizziness and giddiness; R41.3 Other amnesia; W10.9XXA Fall (on) (from) unspecified stairs and steps, initial encounter
CPT/HCPCS: A0425; A0429

== ENCOUNTER 2017-11-03 12:48 | Outpatient (RCR) | payer MEDICAID ==
[2014-11-24 09:38] VITALS: Wt 82.9 kg
[~2017-11-03 12:48] MED LIST changes: +ALTEPLASE RECOMB 2 MG VIAL IVP PRN; -CLON-303 PO; +CLON-304 PO; +DEXTROSE 5%(*) 100 ML BAG 100 ML IVPB PRN; +HEPARIN FLSH (PORT) 500 UN/5ML IVP PRN; +IBUP-136 PO; -IBUP200C71 PO; +KET10 PO; +LIDOCAINE/SOD BICARB 8.4% SYR ID PRN; +NS(*) 0.9% 100 ML BAG 100 ML IVPB PRN; +NS(*) 0.9% 500 ML BAG 500 ML IV PRN; -TRAZ-156 PO; -TRAZ-163 PO; +TRAZ100T31 PO; +TRAZ50TA34 PO; +WATER FOR INJ,STERILE 20 ML IVP PRN
[2017-11-03 12:55] VITALS: BP 106/76
[2017-11-24] MEDS ORDERED: ONDA4TAB PO (18:25)
== END 2017-12-02 08:40 | disposition home or self-care (01) ==
LOC: SPU 12:48
PROVIDERS: ATTEND Physician Assistant
DX: E03.9 Hypothyroidism, unspecified (principal)
CPT/HCPCS: 36591; 36593; 84443; J1642; J2997

== ENCOUNTER → 2017-11-11 | Outpatient (REF) | payer MEDICAID ==
[2014-11-24 09:38] VITALS: BMI 24.0
[~2017-11-11] MED LIST changes: -ALTEPLASE RECOMB 2 MG VIAL IVP PRN; -DEXTROSE 5%(*) 100 ML BAG 100 ML IVPB PRN; -HEPARIN FLSH (PORT) 500 UN/5ML IVP PRN; -LIDOCAINE/SOD BICARB 8.4% SYR ID PRN; -NS(*) 0.9% 100 ML BAG 100 ML IVPB PRN; -NS(*) 0.9% 500 ML BAG 500 ML IV PRN; -WATER FOR INJ,STERILE 20 ML IVP PRN
== END ==
LOC: ZZSENDIN 16:53
PROVIDERS: ATTEND Physician Assistant Medical
DX: Z51.81 Encounter for therapeutic drug level monitoring (principal)
CPT/HCPCS: 80178

== ENCOUNTER 2017-11-24 16:22 | Emergency (ER) | payer MEDICAID ==
[2014-11-24 09:38] VITALS: Wt 81.6 kg
--- NOTE | 2017-11-24 16:25 | ER Report ---
History and Physical Time Seen By MD: 16:24 HPI/ROS CHIEF COMPLAINT: Abdominal pain, nausea, vomiting, diarrhea HISTORY OF PRESENT ILLNESS: 62-year-old female patient presents to emergency room with complaint of abdominal pain, nausea, vomiting diarrhea. Patient states that she is having troubles with abdominal pain, nausea vomiting diarrhea the past 3 weeks. Patient states that she was diagnosed a month ago with a urinary tract infection. She states she was placed on antibiotics. She states there is no improvement. She is switched to Bactrim which caused her to be ill, stating that she developed nausea, vomiting diarrhea. She was switched to a different antibiotic, Macrobid, and had a recurrence of the symptoms. Patient states that she has become very weak, dehydrated. She states she is not able leave her apartment for 3 weeks. She states that she had her phone and was unable to contact anybody for help. Patient states that she's felt very dizzy. She denies having chest pain, shortness of breath. REVIEW OF SYSTEMS: Respiratory: No cough, no dyspnea. Cardiovascular: No chest pain, no palpitations. Gastrointestinal: As noted above Musculoskeletal: No back pain. Allergies: Coded Allergies: Penicillins (Verified Allergy, Severe, 11/24/17) codeine (Verified Allergy, Mild, N/V, 11/24/17) erythromycin base (Verified Allergy, Mild, 11/24/17) propoxyphene (Verified Allergy, Mild, NAUSEA, 11/24/17) tetracycline (Verified Allergy, Mild, DIARRHEA, 11/24/17) Home Meds Active Scripts Ondansetron (ZOFRAN ODT) 4 Mg Tab.rapdis, 4 MG PO Q6H PRN for NAUSEA/VOMITING, #20 TAB.FARTUN Prov:LINDA GARCIAP 11/24/17 Ketorolac Tromethamine (KETOROLAC TROMETHAMINE) 10 Mg Tab, 10 MG PO Q6H, #10 TAB Prov:LINDA GARCIA [facility] 08/27/17 Reported Medications Desvenlafaxine Succinate (PRISTIQ ER) 50 Mg Tab.er.24h, 50 MG PO QHS 04/22/17 Levothyroxine Sodium (LEVOXYL) 125 Mcg Tablet, 125 MCG PO QDAY, TAB 04/22/17 Trazodone Hcl (TRAZODONE HCL) 100 Mg Tablet, 100 MG PO QHS, TAB 04/22/17 Omeprazole (OMEPRAZOLE) 20 Mg Capsule.dr, 1 CAP PO QDAY, CAP 04/22/17 Ibuprofen (IBUPROFEN) 800 Mg Tablet, 1 TAB PO Q8H, TAB 04/22/17 Loperamide Hcl (LOPERAMIDE) 2 Mg Capsule, 4 MG PO QAM, CAPSULE 04/22/17 Dicyclomine Hcl (BENTYL) 10 Mg/1 Ml Ampul, 10 MG PO QAM 04/22/17 Clonazepam (CLONAZEPAM) 1 Mg Tab.rapdis, 2 MG PO QHS, #12 TAB 11/02/16 Aripiprazole (ABILIFY) 5 Mg Tablet, 10 MG PO QDAY, #10 TAB 11/02/16 Cholecalciferol (Vitamin D3) (VITAMIN D3) 1,000 Unit Tablet, 2000 UNIT PO, TAB 12/12/15 Quetiapine Fumarate (QUETIAPINE FUMARATE) 50 Mg Tablet, 50 MG PO QHS 10/06/15 Past Medical/Surgical History Patient has a past medical history of headaches, seizures, migraines, irregular heartbeat, DVT, hypertension, asthma, pneumonia, pulmonary emboli, constipation, diarrhea, pancreatitis, back pain, neck pain, bilateral arm fractures, broken tailbone, PTSD, anxiety, depression. Patient has a surgical history of cholecystectomy, hysterectomy, bilateral knee surgery, bunionectomy, TMJ, tonsillectomy. Patient has a family medical history of stroke, cancer, diabetes, psychiatric problems. Reviewed Nurses Notes: Yes Hx Smoking: No Smoking Status: Former Smoker Exposure to Second Hand Smoke?: No Hx Substance Use Disorder: No Hx Alcohol Use: No Constitutional Vital Sign - Last 24 Hours 11/24/17 11/24/17 11/24/17 11/24/17 16:23 16:25 16:30 16:52 Temp 98.0 Pulse 69 67 Resp 18 B/P (MAP) 116/82 116/82 (93) 119/82 (94) Pulse Ox 93 96 O2 Delivery Room Air 11/24/17 11/24/17 11/24/17 11/24/17 17:00 17:22 18:00 18:30 B/P (MAP) 107/67 (80) 107/66 (80) 102/67 (79) Pulse Ox 89 11/24/17 19:00 Pulse ??? B/P (MAP) 103/69 (80) Physical Exam General Appearance: The patient is alert, has no immediate need for airway protection and no current signs of toxicity. Respiratory: Chest is non tender, lungs are clear to auscultation. Cardiac: regular rate and rhythm Gastrointestinal: Abdomen is soft and non tender, no masses, bowel sounds normal. Musculoskeletal: Neck: Neck is supple and non tender. Extremities have full range of motion and are non tender. Skin: No rashes or lesions. DIFFERENTIAL DIAGNOSIS: After history and physical exam differential diagnosis was considered for nausea and vomiting including but not limited to gastroenteritis, gastritis, appendicitis, and medication side effect. Medical Decision Making Data Points Result Diagram: 11/24/17 1640 11/24/17 1640 Laboratory Hematology Test 11/24/17 16:40 11/24/17 16:43 Red Blood Count 4.17 M/uL (4.17-5.56) Mean Corpuscular Volume 80.7 fL (80.0-96.0) Mean Corpuscular Hemoglobin 27.6 pg (26.0-33.0) Mean Corpuscular Hemoglobin Concent 34.1 g/dL (32.0-36.0) Red Cell Distribution Width 14.0 % (11.5-14.5) Mean Platelet Volume 8.7 fL (7.2-11.1) Neutrophils (%) (Auto) 55.3 % (39.4-72.5) Lymphocytes (%) (Auto) 37.3 % (17.6-49.6) Monocytes (%) (Auto) 5.2 % (4.1-12.4) Eosinophils (%) (Auto) 1.4 % (0.4-6.7) Basophils (%) (Auto) 0.8 % (0.3-1.4) Nucleated RBC Relative Count (auto) 0.0 /100WBC Neutrophils # (Auto) 4.2 K/uL (2.0-7.4) Lymphocytes # (Auto) 2.8 K/uL (1.3-3.6) Monocytes # (Auto) 0.4 K/uL (0.3-1.0) Eosinophils # (Auto) 0.1 K/uL (0.0-0.5) Basophils # (Auto) 0.1 K/uL (0.0-0.1) Nucleated RBC Absolute Count (auto) 0.00 K/uL Sodium Level 139 mmol/L (137-145) Potassium Level 3.7 mmol/L (3.5-5.0) Chloride Level 106 mmol/L (98-107) Carbon Dioxide Level 25 mmol/L (22-31) Blood Urea Nitrogen 13 mg/dl (7-18) Creatinine 0.70 mg/dl (0.52-1.04) Glomerular Filtration Rate Calc > 60.0 Random Glucose 91 mg/dl (75-110) Calcium Level 8.7 mg/dl (8.4-10.2) Total Bilirubin 0.2 mg/dl (0.2-1.3) Aspartate Amino Transf (AST/SGOT) 15 U/L (0-35) Alanine Aminotransferase (ALT/SGPT) 22 U/L (0-56) Alkaline Phosphatase 68 U/L (0-126) C-Reactive Protein < 0.5 mg/dl (<1.0) Total Protein 7.2 g/dl (6.3-8.2) Albumin 3.8 g/dl (3.5-5.0) Amylase Level 78 U/L (0-110) Lipase 49 U/L (23-300) Helicobacter pylori IgG Antibody Negative (NEGATIVE) Urine Color Yellow Urine Clarity Clear Urine pH 7.0 pH (4.8-9.5) Urine Specific [place] 1.009 Urine Protein Negative mg/dL (NEGATIVE) Urine Glucose (UA) Negative mg/dL (NEGATIVE) Urine Ketones Negative mg/dL (NEGATIVE) Urine Blood Negative (NEGATIVE) Urine Nitrite Negative (NEGATIVE) Urine Bilirubin Negative (NEGATIVE) Urine Urobilinogen Negative mg/dL (0.2-1.9) Urine Leukocyte Esterase Negative (NEGATIVE) Urine RBC 1 /HPF (0-2/HPF) Urine WBC 1 /HPF (0-5/HPF) Urine Squamous Epithelial Cells None /LPF (NONE-FEW) Urine Bacteria Negative /HPF (NONE-FEW) Urine Mucus None /HPF (NONE-FEW) Chemistry Test 11/24/17 16:40 11/24/17 16:43 White Blood Count 7.5 k/uL (4.5-11.0) Red Blood Count 4.17 M/uL (4.17-5.56) Hemoglobin 11.5 g/dL (12.0-16.0) Hematocrit 33.7 % (34.0-47.0) Mean Corpuscular Volume 80.7 fL (80.0-96.0) Mean Corpuscular Hemoglobin 27.6 pg (26.0-33.0) Mean Corpuscular Hemoglobin Concent 34.1 g/dL (32.0-36.0) Red Cell Distribution Width 14.0 % (11.5-14.5) Platelet Count 203 K/uL (150-450) Mean Platelet Volume 8.7 fL (7.2-11.1) Neutrophils (%) (Auto) 55.3 % (39.4-72.5) Lymphocytes (%) (Auto) 37.3 % (17.6-49.6) Monocytes (%) (Auto) 5.2 % (4.1-12.4) Eosinophils (%) (Auto) 1.4 % (0.4-6.7) Basophils (%) (Auto) 0.8 % (0.3-1.4) Nucleated RBC Relative Count (auto) 0.0 /100WBC Neutrophils # (Auto) 4.2 K/uL (2.0-7.4) Lymphocytes # (Auto) 2.8 K/uL (1.3-3.6) Monocytes # (Auto) 0.4 K/uL (0.3-1.0) Eosinophils # (Auto) 0.1 K/uL (0.0-0.5) Basophils # (Auto) 0.1 K/uL (0.0-0.1) Nucleated RBC Absolute Count (auto) 0.00 K/uL Glomerular Filtration Rate Calc > 60.0 Calcium Level 8.7 mg/dl (8.4-10.2) Total Bilirubin 0.2 mg/dl (0.2-1.3) Aspartate Amino Transf (AST/SGOT) 15 U/L (0-35) Alanine Aminotransferase (ALT/SGPT) 22 U/L (0-56) Alkaline Phosphatase 68 U/L (0-126) C-Reactive Protein < 0.5 mg/dl (<1.0) Total Protein 7.2 g/dl (6.3-8.2) Albumin 3.8 g/dl (3.5-5.0) Amylase Level 78 U/L (0-110) Lipase 49 U/L (23-300) Helicobacter pylori IgG Antibody Negative (NEGATIVE) Urine Color Yellow Urine Clarity Clear Urine pH 7.0 pH (4.8-9.5) Urine Specific [place] 1.009 Urine Protein Negative mg/dL (NEGATIVE) Urine Glucose (UA) Negative mg/dL (NEGATIVE) Urine Ketones Negative mg/dL (NEGATIVE) Urine Blood Negative (NEGATIVE) Urine Nitrite Negative (NEGATIVE) Urine Bilirubin Negative (NEGATIVE) Urine Urobilinogen Negative mg/dL (0.2-1.9) Urine Leukocyte Esterase Negative (NEGATIVE) Urine RBC 1 /HPF (0-2/HPF) Urine WBC 1 /HPF (0-5/HPF) Urine Squamous Epithelial Cells None /LPF (NONE-FEW) Urine Bacteria Negative /HPF (NONE-FEW) Urine Mucus None /HPF (NONE-FEW) Urinalysis Test 11/24/17 16:43 Urine Color Yellow Urine Clarity Clear Urine pH 7.0 pH (4.8-9.5) Urine Specific [place] 1.009 Urine Protein Negative mg/dL (NEGATIVE) Urine Glucose (UA) Negative mg/dL (NEGATIVE) Urine Ketones Negative mg/dL (NEGATIVE) Urine Blood Negative (NEGATIVE) Urine Nitrite Negative (NEGATIVE) Urine Bilirubin Negative (NEGATIVE) Urine Urobilinogen Negative mg/dL (0.2-1.9) Urine Leukocyte Esterase Negative (NEGATIVE) Urine RBC 1 /HPF (0-2/HPF) Urine WBC 1 /HPF (0-5/HPF) Urine Squamous Epithelial Cells None /LPF (NONE-FEW) Urine Bacteria Negative /HPF (NONE-FEW) Urine Mucus None /HPF (NONE-FEW) EKG/Imaging Imaging EXAMINATION: CT abdomen and pelvis with IV contrast HISTORY: Abdominal pain. TECHNIQUE: Axial CT images of the abdomen and pelvis were obtained with IV contrast, with coronal and sagittal 2D reconstructed images. One of the following dose optimization techniques was utilized in the performance of this exam: Automated exposure control; adjustment of the mA and/or kV according to the patient's size; or use of an iterative reconstruction technique. Specific details can be referenced in the facility's radiology CT exam operational policy. Contrast: 75 mL of IV Isovue-370. COMPARISON: 02/17/2016. FINDINGS: Liver: Negative. Gallbladder and bile ducts: Cholecystectomy. Stable mild prominence of the central bile ducts may relate to the postcholecystectomy state. Spleen: Calcified granuloma in the spleen. Normal spleen size. Pancreas: Negative. Adrenal glands: Negative. Kidneys: Punctate nonobstructing 1 mm calculus in the upper pole of the left kidney. No hydronephrosis. The kidneys enhance normally. Bowel and peritoneum: The small bowel and colon are normal in caliber, without evidence of obstruction or any focal inflammatory process. There are a few scattered colonic diverticula, without evidence of diverticulitis. Normal appendix. No free fluid or free intraperitoneal air. Pelvic structures: Hysterectomy. Lymph node assessment: Negative. Vessels: Mild aortic atherosclerosis. Normal caliber abdominal aorta. IVC filter in place. Musculoskeletal: Scattered degenerative changes throughout the spine. No acute osseous findings. Body wall: Negative. Lung bases: Negative. IMPRESSION: 1. No CT evidence of acute intra-abdominal pathology. 2. Normal appendix. 3. Colonic diverticulosis, without evidence of diverticulitis. 4. Prior cholecystectomy and hysterectomy. Report Dictated By: Samy Augustine MD at 11/24/2017 5:48 PM Report E-Signed By: Samy Augustine MD at 11/24/2017 6:01 PM EXAMINATION: CT head without IV contrast HISTORY: Headache and abdominal pain. TECHNIQUE: Axial CT images of the head were obtained from the vertex to the skull base without IV contrast, with coronal and sagittal 2D reconstructed images. One of the following dose optimization techniques was utilized in the performance of this exam: Automated exposure control; adjustment of the mA a nd/or kV according to the patient's size; or use of an iterative reconstruction technique. Specific details can be referenced in the facility's radiology CT exam operational policy. COMPARISON: 08/27/2017. FINDINGS: There is mild age-appropriate parenchymal volume loss, with slight patchy low attenuation in the deep white matter compatible with chronic small vessel ischemic change. Intracranial vascular calcifications. No CT evidence of intracranial hemorrhage, mass lesion, or acute infarct. No midline shift or extra-axial fluid collections. Azevedo-white differentiation is maintained. Stable benign changes of hyperostosis frontalis interna. The calvarium is intact. The visualized paranasal sinuses are unopacified. There is stable opacification of several left mastoid air cells, without aggressive osseous changes. Advanced chronic degenerative changes at the right TMJ. IMPRESSION: 1. Stable exam. No CT evidence of acute intracranial pathology. 2. Mild chronic age-related changes with mild parenchymal volume loss. Report Dictated By: Samy Augustine MD at 11/24/2017 6:02 PM Report E-Signed By: Smay Augustine MD at 11/24/2017 6:05 PM ED Course/Re-evaluation ED Course Patient was admitted and examined, history and physical were obtained. Di fferential diagnoses were considered. On examination lungs are clear, heart regular, abdomen was soft and nontender. Patient states she was having horrible left lower quadrant abdominal pain. I was unable to reproduce that on my physical exam. A CBC, CMP, catheter urinalysis were done. Lab results were unremarkable. CRP was done which was negative. A CT scan of the head was done due to the patient's dizziness as well as a CT scan of abdomen and pelvis. The results were negative. I discussed the findings with the patient. We'll discuss this with her the patient states she was still having horrible left lower quadrant abdominal pain. I informed her that at this time is unable to find the underlying cause. I encouraged follow-up with her primary care provider for further evaluation. We will go ahead and send a prescription of Zofran into the pharmacy. Patient is to follow-up with primary care provider, calling tomorrow to make an appointment. Patient verbalized understanding and agreement with plan. Decision to Disposition Date: Nov 24, 2017 Decision to Disposition Time: 18:26 Depart Departure Latest Vital Signs Vital Signs Date Time Temp Pulse Resp B/P (MAP) Pulse Ox O2 Delivery O2 Flow Rate FiO2 11/24/17 19:00 ??? 103/69 (80) 11/24/17 17:22 89 11/24/17 16:23 98.0 18 Room Air Impression: Primary Impression: Abdominal pain Additional Impression: Nausea & vomiting Condition: Improved Disposition: HOME OR SELF-CARE Referrals: DELIA RILEY PA-C (PCP) New Scripts Ondansetron (ZOFRAN ODT) 4 Mg Tab.rapdis 4 MG PO Q6H PRN for NAUSEA/VOMITING, #20 TAB.FARTUN Prov: LINDA GARCIA 11/24/17 Patient Instructions: Acute Nausea and Vomiting (ED) Additional Instructions: Increase fluid intake. Clear liquid diet for the next 24-48 hours. After that you may advance diet as tolerated starting with complex carbohydrates; rice, bread or pasta. Follow up with your primary care provider in the next week. Return to the ER if condition worsens. You may take over the counter Pepto Bismol as needed for cramping, diarrhea and discomfort. Problem Qualifiers Primary Impression: Abdominal pain Abdominal location: left lower quadrant Qualified Codes: R10.32 - Left lower quadrant pain Additional Impression: Nausea & vomiting Vomiting type: unspecified Vomiting Intractability: non-intractable Qualified Codes: R11.2 - Nausea with vomiting, unspecified LINDA GARCIAP Nov 24, 2017 16:25
[2017-11-24] MEDS ORDERED: NS(*) 0.9% 1000 ML BAG 1,000 ML IV ONE (16:34)
[2017-11-24] MEDS ORDERED: IOPAMIDOL 76% 75 ML INFUS BTL 75 ML ONE (16:49)
[2017-11-24] MEDS ORDERED: ONDANSETRON 4 MG/2 ML VIAL IVP ONE (16:55)
[2017-11-24 17:05] LABS: PLATELET COUNT, AUTOMATED 203 K/uL (150-450)
--- NOTE | 2017-11-24 18:06 | RADIOLOGY IMAGING REPORT ---
FACILITY: [facility] PATIENT NAME: Gayatri Ahuja : 1955 MR: [id number] V: [id number] EXAM DATE: ORDERING PHYSICIAN: LINDA GARCIA TECHNOLOGIST: [place] [facility] [place] Gayatri Ahuja : 1955 Visit/Account:[id number] Date of Sevice: 11/24/2017 EXAMINATION: CT abdomen and pelvis with IV contrast HISTORY: Abdominal pain. TECHNIQUE: Axial CT images of the abdomen and pelvis were obtained with IV contrast, with coronal a nd sagittal 2D reconstructed images. One of the following dose optimization techniques was utilized in the performance of this exam: Autom ated exposure control; adjustment of the mA and/or kV according to the patient's size; or use of an i terative reconstruction technique. Specific details can be referenced in the facility's radiology C T exam operational policy. Contrast: 75 mL of IV Isovue-370. COMPARISON: 02/17/2016. FINDINGS: Liver: Negative. Gallbladder and bile ducts: Cholecystectomy. Stable mild prominence of the central bile ducts may re late to the postcholecystectomy state. Spleen: Calcified granuloma in the spleen. Normal spleen size. Pancreas: Negative. Adrenal glands: Negative. Kidneys: Punctate nonobstructing 1 mm calculus in the upper pole of the left kidney. No hydronephros is. The kidneys enhance normally. Bowel and peritoneum: The small bowel and colon are normal in caliber, without evidence of obstructi on or any focal inflammatory process. There are a few scattered colonic diverticula, without evidence of diverticulitis. Normal appendix. No free fluid or free intraperitoneal air. Pelvic structures: Hysterectomy. Lymph node assessment: Negative. Vessels: Mild aortic atherosclerosis. Normal caliber abdominal aorta. IVC filter in place. Musculoskeletal: Scattered degenerative changes throughout the spine. No acute osseous findings. Body wall: Negative. Lung bases: Negative. IMPRESSION: 1. No CT evidence of acute intra-abdominal pathology. 2. Normal appendix. 3. Colonic diverticulosis, without evidence of diverticulitis. 4. Prior cholecystectomy and hysterectomy. Report Dictated By: Samy Augustine MD at 11/24/2017 5:48 PM Report E-Signed By: Samy Augustine MD at 11/24/2017 6:01 PM WSN:[id number]
--- NOTE | 2017-11-24 18:09 | RADIOLOGY IMAGING REPORT ---
FACILITY: [facility] PATIENT NAME: Gayatri Ahuja : 1955 MR: [id number] V: [id number] EXAM DATE: ORDERING PHYSICIAN: LINDA GARCIA [place]CHN[place] [facility] [place] A[place] : 1955 Visit/Account:[id number] Date of Sevice: 11/24/2017 EXAMINATION: CT head without IV contrast HISTORY: Headache and abdominal pain. TECHNIQUE: Axial CT images of the head were obtained from the vertex to the skull base without IV c ontrast, with coronal and sagittal 2D reconstructed images. One of the following dose optimization techniques was utilized in the performance of this exam: Autom ated exposure control; adjustment of the mA and/or kV according to the patient's size; or use of an i terative reconstruction technique. Specific details can be referenced in the facility's radiology C T exam operational policy. COMPARISON: 08/27/2017. FINDINGS: There is mild age-appropriate parenchymal volume loss, with slight patchy low attenuation in the deep white matter compatible with chronic small vessel ischemic change. Intracranial vascular calcificati ons. No CT evidence of intracranial hemorrhage, mass lesion, or acute infarct. No midline shift or extra-a xial fluid collections. Azevedo-white differentiation is maintained. Stable benign changes of hyperostosis frontalis interna. The calvarium is intact. The visualized para nasal sinuses are unopacified. There is stable opacification of several left mastoid air cells, witho ut aggressive osseous changes. Advanced chronic degenerative changes at the right TMJ. IMPRESSION: 1. Stable exam. No CT evidence of acute intracranial pathology. 2. Mild chronic age-related changes with mild parenchymal volume loss. Report Dictated By: Samy Augustine MD at 11/24/2017 6:02 PM Report E-Signed By: Samy Augustine MD at 11/24/2017 6:05 PM WSN:[email or web address]
[2017-11-24] MEDS ORDERED: ONDA4TAB PO (18:25)
[2017-11-24] MEDS ORDERED: HEPARIN FLSH (PORT) 500 UN/5ML IVP ONE (19:10)
[2017-11-24 19:38] VITALS: BP 105/70
== END 2017-11-24 20:01 | disposition home or self-care (01) ==
LOC: ER 16:26
DX: R10.32 Left lower quadrant pain (principal); R11.2 Nausea with vomiting, unspecified
CPT/HCPCS: 81001; 82150; 83690; 85025; 86140; 86677; 96361; 96374; 99284; J1642; J2405; J7030; Q9967; 70450; 74177; 82040; 82247; 82310; 82374; 82435; 82565; 82947; 84075; 84132; 84155; 84295; 84450; 84460; 84520; A4353

== ENCOUNTER 2018-01-05 12:57 | Outpatient (RCR) | payer MEDICAID ==
[2014-11-24 09:38] VITALS: BMI 24.0
[~2018-01-05 12:57] MED LIST changes: +ALTEPLASE RECOMB 2 MG VIAL IVP PRN; -CLON-304 PO; +CLON-333 PO; +DEXTROSE 5%(*) 100 ML BAG 100 ML IVPB PRN; +HEPARIN FLSH (PORT) 500 UN/5ML IVP PRN; -HYDR-4309 PO; +HYDR-653 PO; +LIDOCAINE/SOD BICARB 8.4% SYR ID PRN; +NS(*) 0.9% 100 ML BAG 100 ML IVPB PRN; +NS(*) 0.9% 500 ML BAG 500 ML IV PRN; +WATER FOR INJ,STERILE 20 ML IVP PRN
== END 2018-02-01 09:09 | disposition home or self-care (01) ==
LOC: SPU 12:57
PROVIDERS: ATTEND Physician Assistant
DX: Z45.2 Encounter for adjustment and management of vascular access device (principal); E03.9 Hypothyroidism, unspecified
CPT/HCPCS: 36591; 84443; 96374; J1642; J2997

== ENCOUNTER → 2018-02-16 | Outpatient (CLI) | payer MEDICAID ==
[2014-11-24 09:38] VITALS: BMI 24.0
[~2018-02-16] MED LIST changes: -ALTEPLASE RECOMB 2 MG VIAL IVP PRN; -CETI-14 PO; +CETI-154 PO; -DEXTROSE 5%(*) 100 ML BAG 100 ML IVPB PRN; -HEPARIN FLSH (PORT) 500 UN/5ML IVP PRN; +HYDR30CR10 TP; -LIDOCAINE/SOD BICARB 8.4% SYR ID PRN; -NS(*) 0.9% 100 ML BAG 100 ML IVPB PRN; -NS(*) 0.9% 500 ML BAG 500 ML IV PRN; -WATER FOR INJ,STERILE 20 ML IVP PRN
== END ==
LOC: LAB 09:30
PROVIDERS: ATTEND Nurse Practitioner
DX: L82.1 Other seborrheic keratosis (principal)
CPT/HCPCS: 88305

== ENCOUNTER 2018-03-07 12:52 | Outpatient (RCR) | payer MEDICAID ==
[2014-11-24 09:38] VITALS: BMI 24.0
[~2018-03-07 12:52] MED LIST changes: +ALTEPLASE RECOMB 2 MG VIAL IVP PRN; +DEXTROSE 5%(*) 100 ML BAG 100 ML IVPB PRN; +HEPARIN FLSH (PORT) 500 UN/5ML IVP PRN; +LIDOCAINE/SOD BICARB 8.4% SYR ID PRN; +NS(*) 0.9% 100 ML BAG 100 ML IVPB PRN; +NS(*) 0.9% 500 ML BAG 500 ML IV PRN; +WATER FOR INJ,STERILE 20 ML IVP PRN
[2018-03-07 13:03] VITALS: BP 125/77
[2018-03-30] MEDS ORDERED: OXYC-865 PO (15:17)
== END 2018-04-17 ==
LOC: SPU 12:52
PROVIDERS: ATTEND Physician Assistant
DX: Z45.2 Encounter for adjustment and management of vascular access device (principal); E03.9 Hypothyroidism, unspecified
CPT/HCPCS: 36593; 96523; J1642; J2997; 96374